=== PATIENT | male | born 1975 | race Caucasian/White ===

== ENCOUNTER 2021-07-25 18:23 | Emergency (ER) | payer OTHER, SELFPAY ==
[2021-07-25 18:39] VITALS: BP 163/98; PULSE 99; RESP 18; TEMP 37.2; O2SAT 100
--- NOTE | 2021-07-25 18:39 | ED.UPPEXIN ---
HPI - Extremity Injury (Upper) General Chief Complaint: Extremity Injury, Upper Stated Complaint: Rt shoulder pain,Lt elbow pain Time Seen by Provider: 07/25/21 18:39 Source: patient and RN notes reviewed History of Present Illness HPI narrative: Patient is a 46-year-old male who presents the urgent care with complaints of right shoulder pain due to a fall from a week and a half ago. Patient also reports of left elbow swelling and pain that has been intermittent for the last couple weeks. Patient states that the pain has decreased however he thought he would bring it up while he is here . Patient has been taking ibuprofen for the pain. No other acute complaints. No acute distress noted. Patient aware of the plan of care. Some parts of this dictation were generated by voice recognition software and may contain typographical and/or grammatical inaccuracies. Related Data Allergies Allergy/AdvReac Type Severity Reaction Status Date / Time No Known Allergies Allergy Verified 07/25/21 18:44 Review of Systems Review of Systems: CONSTITUTIONAL: Denies fever, chills, or sweats. EYES: Denies visual changes, redness, or discharge. ENT: Denies rhinorrhea, congestion, sore throat, or otalgia. CARDIOVASCULAR: Denies chest pain, palpitations, or edema. RESPIRATORY: Denies cough or dyspnea. GASTROINTESTINAL: Denies abdominal pain, nausea, vomiting, or diarrhea. GENITOURINARY: Denies dysuria or hematuria. SKIN: Denies rash or itching. MUSCULOSKELETAL: Reports of right shoulder pain and left elbow swelling and pain NEUROLOGIC: Denies headache, numbness, or weakness. All other systems reviewed are negative, except as documented in HPI. PMFSH Comments At the time of my signature, I reviewed and agree with the nursing past medical, surgical, social, and family history. There is no relevant family history pertinent to the patient complaint. Exam Narrative: GENERAL: This is a well-nourished, well-developed patient, in no apparent distress. HEAD: normocephalic, atraumatic. EYES: PERRL. Sclera clear/white. Vision is grossly intact. EARS: External ears normal NOSE: External nose normal with no obvious nasal discharge, nares without redness, no rhinorrhea. THROAT: Mucous membranes moist NECK: Neck supple CARDIOVASCULAR: Regular rate and rhythm without murmurs, gallops, or rubs. RESPIRATORY: Clear to auscultation. Breath sounds equal bilaterally. No wheezes, rales, or rhonchi. SKIN: warm, intact with no suspicious lesions or rash, good texture and turgor. NEURO: awake, alert, and oriented to person, place and time. There were no obvious focal neurologic abnormalities. EXTREMITIES: Mild to moderate left elbow bursitis without erythema. Range of motion to left upper extremity within normal limits with positive strong left radial pulse and capillary refill less than 2 seconds. Mild anterior and posterior joint tenderness to the right shoulder without obvious dislocation or deformity. Range of motion limited due to pain. Pain with abduction and abduction to the right upper extremity. Positive strong right radial pulse with capillary refill less than 2 seconds. Course Vital Signs Vital signs: Vital Signs Temperature 99.0 F 07/25/21 18:39 Pulse Rate 99 07/25/21 18:39 Respiratory Rate 18 07/25/21 18:39 Blood Pressure 163/98 H 07/25/21 18:39 Pulse Oximetry 100 07/25/21 18:39 Temperature 99.0 F 07/25/21 18:39 Pulse Rate 99 07/25/21 18:39 Respiratory Rate 18 07/25/21 18:39 Blood Pressure 163/98 H 07/25/21 18:39 Pulse Oximetry 100 07/25/21 18:39 Reviewed-patient is informed that they may have pre-hypertension or hypertension based on a blood pressure reading in the department. I recommend the patient call the primary care provider listed on their discharge instructions or a physician of their choice this week to arrange follow-up for further evaluation of possible pre-hypertension or hypertension. MDM - Extremity In
== END 2021-07-25 19:04 | disposition home or self-care (01) ==
PROVIDERS: Emergency Provider Nurse Practitioner Family
DX: M70.21 Olecranon bursitis, right elbow (principal); S43.401A Unspecified sprain of right shoulder joint, initial encounter; W19.XXXA Unspecified fall, initial encounter
CPT/HCPCS: 99213; G0463

== ENCOUNTER → 2021-11-28 03:04 | Outpatient (CLI) | payer OTHER, SELFPAY ==
[2021-11-28 10:46] LABS: SARS-CoV-2 RNA PCR Negative
== END ==
PROVIDERS: Visit Provider Orthopaedic Surgery
DX: Z01.812 Encounter for preprocedural laboratory examination (principal); Z20.822 Contact with and (suspected) exposure to COVID-19
CPT/HCPCS: C9803; U0003; U0005

== ENCOUNTER 2021-12-01 01:41 | Day surgery (SDC) | payer OTHER, SELFPAY ==
--- NOTE | 2021-11-22 15:37 | PC.NURSE ---
Report to the Outpatient Waiting Room, entrance under the green pavilion located off [facility], at time _0800_ on date __12/01/21_. OR Time: 1000. - You and your visitor will be asked a series of questions to screen for COVID 19 for your protection. - A mask is required within the hospital. Preoperative COVID Testing Requirements: No COVID Test needed if: (proof is required; if not received patient will have Rapid Test prior to entry) - Patient has received COVID Vaccine at least 14 days prior to procedure date or - Patient has positive COVID test result within last 90 days of surgery date. COVID Test needed if above criteria is not met YOUR COVID TEST IS SCHEDULED ON 11/28/21 AT 0945 If not COVID vaccinated a COVID test must be conducted within 72 hours of surgery and patient is asked to isolate self from time of testing until procedure. You will go to the [facility] for your COVID testing. The [employer] [facility] site is located at the corner of [address] [facility]. You will only be called if COVID results are positive and your surgeon may reschedule your elective surgery date. Patients may have clear liquids (water, carbonated beverages, clear teas, apple juice) until 3 hours prior to surgery with a maximum of 20 ounces. - No food from midnight until time of surgery - Infants may have breast milk until 4 hours before surgery, formula 6 hours prior to surgery. - Children will be allowed to drink immediately following surgery. If applicable, please bring a bottle or sippy cup to assist with drinking. Juice, water, soda, and popsicles are readily available. For infants on formula, please bring formula the day of surgery. Pacifiers are allowed. Take the following medications with a SIP of water the morning of surgery: _NONE Medications to discontinue per physician N/A Date to take last dose__N/A Please no make-up, nail belgian, hairspray, perfume, deodorant, or body powder the day of surgery. No jewelry (including any body piercings) or valuables the day of surgery, leave them at home. Please take a shower or bath the night before, or the morning of, surgery with an antibacterial soap. Wear comfortable, loose fitting clothing. Children are encouraged to wear pajamas. - Jewelry must be removed prior to entering the operating room. Rings and piercings that are not removed may be cut off. - The hospital will not accept responsibility for valuables. - Please leave all valuables, including medications, at home the day of surgery. If you are going home after surgery, a licensed hack driver must drive you home. - NO public transportation without another adult. - We recommend that an adult stay with you for 24 hours following discharge. - We also recommend that you do not drive, make important decision, drink alcoholic beverages, or take any drugs that were not prescribed by your health care provider for at least 24 hours after your discharge time. For Pediatric surgeries, we recommend two adults accompany the child home (only one inside the building at this time). One visitor will be allowed to accompany the patient into the hospital. Patients visitor will be instructed to remain with patient at all times or leave the building. We will allow the visitor to come back to the postoperative area when patient is ready. Follow any additional instructions given to you from your surgeon. Telephone instructions given to __BIANCA and asked if any additional questions and then verbalized understanding. Patient advised to call surgeon office or pre surgery nurse liaison [phone] if any additional questions.
--- NOTE | 2021-11-30 17:10 | WPDANESEPPF ---
Anes - Initial Pre Proc Eval Procedure: Operation Date: 12/01/21 10:00 Proposed Procedures p Right Shoulder Arthroscopy, with Debridement Rotator Cuff and Biceps Repair, Possible Open Repair - Dk Gibbs MD Date/Time: 11/30/21 17:10 Surgeon: Dk Gibbs MD Pre Op Diagnosis: rt rot cuff tear, shoulder pain,biceps tendonitis Patient Data Age: 46 Gender: M Height: 1.85 m Weight: 127.1 kg Allergies Allergy/AdvReac Type Severity Reaction Status Date / Time No Known Allergies Allergy Verified 12/01/21 09:11 Home Medications Medication Instructions Recorded Confirmed Type ibuprofen 800 mg PO TID PRN #30 tablet 12/01/21 Rx ondansetron 8 mg PO Q8H PRN #10 tablet 12/01/21 Rx oxycodone-acetaminophen [Percocet] 1 tablet PO Q4H PRN #30 tablet 12/01/21 Rx sennosides-docusate sodium [Senna 1 tab-cap PO BID PRN #20 tablet 12/01/21 Rx with Docusate Sodium] Patient hx anesthesia problems: none Family hx anesthesia problems: none Results Review: All pre-operative results and documents have been reviewed as part of the pre-operative evaluation. 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 [employer] Gender identity (if verbalized by the patient): Male Spiritual care concerns: No Anes - Eval Final PreProcedure Day of Procedure 11/30/21 17:10 Patient weight: obese Heart: regular rate and rhythm Lungs: clear to auscultation and normal air movement Airway: Mallampati scale class II Neurological: alert and oriented Last oral intake: >/= 8 hours ASA classification: II Emergent: no Anesthetic plan: proceed Anesthesia type and monitoring: general ETT Results Review: All pre-operative results and documents have been reviewed as part of the pre-operative evaluation. Informed Consent: The patient's anesthetic plan and its attendant risks and benefits were discussed with the patient/family/POA. Questions were solicited and answers provided to the satisfaction of the patient/family/POA.
[2021-12-01] VITALS (8 sets, daily range): BP systolic 120–179; BP diastolic 58–100; PULSE 54–69; RESP 12–16; TEMP 36.4–36.6; O2SAT 97–100
--- NOTE | 2021-12-01 07:09 | WPDHPUPDATE1 ---
History and Physical Update Update Date/Time: 12/01/21 07:09 History and Physical has been reviewed, including an updated exam of the patient. There are NO changes in the patient's condition. Risks, benefits, and alternatives have been discussed and questions answered. Patient agrees to proceed with procedure.
[2021-12-01] MEDS: ACETAMINOPHEN 500 MG TABLET 1000 MG PO (08:28)
[2021-12-01] MEDS: KETOROLAC 15 MG/ML VIAL (*BKC) IV PUSH (08:30)
[2021-12-01] MEDS: LACTATED RINGERS 1,000 ML 30 ML IV CONT ×2 (08:42→12:11)
--- NOTE | 2021-12-01 09:31 | WPDANESPNB ---
Anes - Peripheral Nerve Block Date/Time: 12/01/21 09:31 I have discussed with the patient/family/POA the placement of a peripheral nerve block for post-operative pain management, including associated risks, benefits, complications, and side effects. Alternative methods of post-operative analgesia were detailed. Questions were solicited and answers provided to the satisfaction of the patient/family/POA. Time-Out: A pre-procedural Time-Out was completed immediately before starting the procedure and confirmed: Patient Identification, Site, Procedure, Patient Position and the Availability of Requisite Equipment. Clinical Indications: Acute post-operative pain management requested by the operative surgeon. Nerve Block Insertion Note Anes-nerve block: supraclavicular right Patient position: supine Skin prep: chlorhexidine Needle: 22 gauge, stimulating, insulated echogenic needle. Needle length: 80 mm Technique: ultrasound Technique comment: in plane Injectate: bupivacaine 0.5% with epi 5 mcg/ml (20cc) Observations: tolerated well Complications: none Procedure start time:: 945 Procedure end time:: 950
[2021-12-01] MEDS: ceFAZolin 3 GM/D5W 100 ML 100 ML IVPB (09:57)
[2021-12-01] MEDS: BUPIVACAINE/EPINEPHRINE 0.25% 50 ML VIAL 10 ML INFILTRATE (10:53)
--- NOTE | 2021-12-01 12:34 | W.PM.PROC2 ---
Procedure Note - Detailed Date of Procedure 12/01/21 Pre-op Diagnosis rt rot cuff tear, shoulder pain,biceps tendonitis Post-op Diagnosis Same Procedure Performed Right shoulder arthroscopy with debridement, acromioplasty, open rotator cuff repair. 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 MRI demonstrates rotator cuff tear, questionable biceps tendinitis inflammation of the shoulder joint and subacromial space. Failed conservative treatment with cortisone injection, physical therapy, activity modifications and anti-inflammatories. Presents now for operative treatment. Findings Right shoulder full-thickness rotator cuff tear supraspinatus 1.5 cm anterior to posterior. Inflammatory changes of the articular surface of the rotator cuff and biceps. Mild inflammation the superior and anterior labrum. Subscapularis intact. Inflammation of the biceps but no tear noted. Subacromial spur and subacromial bursitis. Description of Procedure Patient identified in the preoperative holding. Informed consent given. Operative extremity marked. Patient received intravenous antibiotics. Patient brought to the operating room where underwent general anesthetic by anesthesia team. Positioned supine on operating room table. Time-out performed confirming the patient, site of the surgery and the plan. Patient was then positioned in the beach chair position with careful securing of the head and neck. Right shoulder was then prepped and draped usual sterile surgical fashion using a ChloraPrep skin solution. Local anesthetic with 0.5% Marcaine with epinephrine was used at the portal sites. Standard posterior arthroscopy portal position with a 22 gauge spinal needle and infiltrating of the joint with saline. Eleven blade knife used to incise the skin and blunt penetration of the soft tissue and posterior capsule. Camera and inflow restarted through this portal. The shoulder was inspected and findings were noted. Anterior portal was then made using positioning from a 22 gauge spinal needle, 11 blade knife for the skin and blunt penetration of the anterior capsule. 4.5 mm arthroscopic shaver introduced and a debridement of the shoulder joint was performed including the glenoid and humeral head, undersurface of the rotator cuff, labrum and the rotator cuff tear site itself. Arthroscopic wand introduced and bleeding points were coagulated. Any excess synovitis was removed with the Wand. Scope then position in the subacromial space. Direct lateral incision made with 15 blade knife shaver introduced. Bursectomy and acromioplasty then performed. Bleeding points coagulated with the Wand. Open repair then performed. Incision made within Eduardo's lines centered lateral over the acromion with a 15 blade knife. Fascia incised in skin incision. Deltoid then identified and released off of the acromion. Sub deltoid retractor placed. Subdeltoid bursectomy performed. Hemostasis controlled electrocautery. Retractors were placed in the deltoid muscle was split in line with the skin incision. The rotator cuff tear was identified. Supraspinatus footplate 1.5 cm anterior to posterior. Subacromial bursectomy performed. The footprint on the humeral tuberosity was then prepared with a rongeur and rasp. Thorough irrigation was performed. One medial row anchor was then placed using a punch followed by placement of the corkscrew suture anchor. Suture tape was then passed through the rotator cuff to provide sufficient tissue for repair. Repair was then performed by using lateral anchor and cross stitching the suture tape. The arm was abducted to aid in the repair. Sutures were cut and the arm was then taken through a full range of motion and noted to be stable. No impingement noted. There was no excess tear or dog ear which required repair. Wounds thoroughly irrigated with solution. Good repair
== END 2021-12-01 14:05 | disposition home or self-care (01) ==
PROVIDERS: Visit Provider Orthopaedic Surgery
PROC: (CPT 29805; principal; 2021-12-01 10:00)
DX: S49.81XA Other specified injuries of right shoulder and upper arm, initial encounter (principal); S46.011A Strain of muscle(s) and tendon(s) of the rotator cuff of right shoulder, initial encounter; M75.51 Bursitis of right shoulder; M25.611 Stiffness of right shoulder, not elsewhere classified; M25.511 Pain in right shoulder; G47.33 Obstructive sleep apnea (adult) (pediatric); M75.01 Adhesive capsulitis of right shoulder; G89.18 Other acute postprocedural pain; E66.9 Obesity, unspecified; Z68.37 Body mass index [BMI] 37.0-37.9, adult; W31.9XXA Contact with unspecified machinery, initial encounter; Y99.0 Civilian activity done for income or pay
CPT/HCPCS: 64415; 23410; 29823; A4565; A9270; J0690; J1100; J1885; J2250; J2405; J2704; J3010; J7120